=== PATIENT | female | born 1955 ===

== ENCOUNTER 2023-02-22 06:04 | Day surgery (SDC) | payer OTHER ==
[~2023-02-22] VITALS: Ht 152.4 cm; Wt 77.1 kg
[~2023-02-22 06:04] MED LIST: COZAAR25 MG PO; FARXIGA10 MG PO; LIPITOR40 M1 PO; METFORMIN HCL850 M1 PO; PRISTIQ ER50 MG PO; SEROQUEL XR50 MG PO
[2023-02-22] MEDS ORDERED: TRAM1TAB98 PO (10:22)
[2023-02-22] MEDS ORDERED: INTESTINEX680 M1 PO (10:22)
== END 2023-02-22 13:15 | disposition home or self-care (01) ==
LOC: CIR.AMB 06:04
PROVIDERS: ATTEND Surgery
DX: D12.8 Benign neoplasm of rectum (principal); Z20.822 Contact with and (suspected) exposure to COVID-19; I10 Essential (primary) hypertension; E11.9 Type 2 diabetes mellitus without complications; E78.5 Hyperlipidemia, unspecified